=== PATIENT | male | born 1955 | race Caucasian/White ===

== ENCOUNTER 2021-01-06 07:12 | Outpatient (REF) | payer OTHER, SELFPAY ==
[2021-01-06 11:55] LABS: MANUAL DIFF FLAG NO
[2021-01-06 12:01] LABS: Basophils Percent Auto 0.4 % (0-2); Eosinophils Absolute Auto 0.1 X10*3/uL (0.0-0.4); Eosinophils Percent Auto 1.7 % (0-4); Hematocrit 47.3 % (42-52); Hemoglobin 15.6 g/dl (14.0-18.0); Imm Gran Abs Auto 0.04 X10*3/uL (0.00-0.03); Imm Gran Pct Auto 0.5 % (0.0-0.4); Lymphocytes Absolute Auto 1.9 X10*3/uL (1.2-4.9); Lymphocytes Percent Auto 23.4 % (20-40); Mean Corpuscular Hemoglobin 30.2 pg (27.0-33.0); Mean Corpuscular Volume 91.5 fL (80-98); Monocytes Absolute Auto 0.7 X10*3/uL (0.1-1.2); Neutrophils Absolute Auto 5.5 X10*3/uL (2.0-8.3); Platelet Count 202 X10*3/uL (160-400); Red Blood Count 5.17 X10*6/uL (4.60-5.80); Red Cell Distribution Width 13.3 % (11.0-16.0); White Blood Count 8.3 X10*3/uL (4.8-10.8)
[2021-01-06 12:17] LABS: Alanine Aminotransferase 16 U/L (0-40); Albumin Level 4.3 g/dL (3.5-5.0); Alkaline Phosphatase 118 U/L (39-117); Anion Gap 12 (12-20); Aspartate Amino Transferase 21 U/L (5-37); Bilirubin Total 0.7 mg/dL (0.0-1.0); Blood Urea Nitrogen 18 mg/dL (9-16); Calcium 9.2 mg/dL (8.4-10.2); Carbon Dioxide 26 mmol/L (22-29); Chloride 107 mmol/L (96-108); Cholesterol 167 mg/dL; Estimated Glomerular Filt Rate > 60; Glucose Fasting 91 mg/dL (60-99); HDL Cholesterol 33 mg/dL; LDL Cholesterol Calculated 111 mg/dl; Potassium 4.4 mmol/L (3.3-5.1); Sodium 141 mmol/L (135-145); Total Protein 7.2 g/dL (6.5-8.0); Triglycerides 115 mg/dL
== END 2021-01-06 07:13 | disposition home or self-care (01) ==
LOC: HO.HMGCLDS 07:12
PROVIDERS: PCP Internal Medicine; Visit Provider Internal Medicine
DX: Z00.00 Encounter for general adult medical examination without abnormal findings (principal); Z12.5 Encounter for screening for malignant neoplasm of prostate
CPT/HCPCS: 36415; 80053; 80061; 84153; 85025

== ENCOUNTER 2024-02-10 12:54 | Outpatient (REF) | payer MEDICARE, SELFPAY ==
[2024-02-10 16:19] LABS: MANUAL DIFF FLAG NO
[2024-02-10 16:24] LABS: Basophils Percent Auto 0.5 % (0-2); Eosinophils Absolute Auto 0.2 X10*3/uL (0.0-0.4); Eosinophils Percent Auto 1.8 % (0-4); Hematocrit 43.9 % (42.0-52.0); Hemoglobin 15.1 g/dl (14.0-18.0); Imm Gran Abs Auto 0.04 X10*3/uL (0.00-0.03); Imm Gran Pct Auto 0.5 % (0.0-0.4); Lymphocytes Absolute Auto 1.6 X10*3/uL (1.2-4.9); Lymphocytes Percent Auto 18.5 % (20-40); Mean Corpuscular HGB Conc 34.4 g/dl (31.0-36.0); Mean Corpuscular Hemoglobin 31.2 pg (27.0-33.0); Mean Corpuscular Volume 90.7 fL (80.0-98.0); Mean Platelet Volume 12.2 fL (9.4-12.4); Monocytes Absolute Auto 0.7 X10*3/uL (0.1-1.2); Monocytes Percent Auto 7.7 % (2-11); Platelet Count 193 X10*3/uL (160-400); Red Blood Count 4.84 X10*6/uL (4.60-5.80); Red Cell Distribution Width 13.7 % (11.0-16.0); White Blood Count 8.5 X10*3/uL (4.8-10.8)
[2024-02-10 16:32] LABS: Anion Gap 12 (12-20); Blood Urea Nitrogen 16 mg/dL (9-16); Calcium 9.6 mg/dL (8.4-10.2); Carbon Dioxide 26 mmol/L (22-29); Chloride 106 mmol/L (96-108); Cholesterol 184 mg/dL (<200); Estimated Glomerular Filt Rate > 60; Glucose Random 102 mg/dL (60-115); Potassium 4.1 mmol/L (3.3-5.1); Sodium 140 mmol/L (135-145)
[2024-02-10 17:02] LABS: Prostate Specific Antigen Scr 7.25 ng/mL (<0.05-4.0)
== END 2024-02-10 12:55 | disposition home or self-care (01) ==
LOC: HO.HMGCLDS 12:54
PROVIDERS: PCP Internal Medicine; Visit Provider Internal Medicine
DX: N40.0 Benign prostatic hyperplasia without lower urinary tract symptoms (principal); Z12.5 Encounter for screening for malignant neoplasm of prostate; K57.30 Diverticulosis of large intestine without perforation or abscess without bleeding
CPT/HCPCS: 36415; 80048; 82465; 84153; 85025

== ENCOUNTER 2024-02-21 12:45 | Outpatient (REF) | payer MEDICARE, SELFPAY ==
[2024-02-21 17:38] LABS: PSA,Total (Free>4and<10) 5.77 ng/mL (0.00-4.00)
[2024-02-23 11:27] LABS: Free Prostate Spec Ag 1.1 ng/mL; Percent Free Prostate Spec Ag 20 % (calc) (>25); Prostate Specific Ag Total 5.5 ng/mL (< OR = 4.0)
== END 2024-02-21 12:46 | disposition home or self-care (01) ==
LOC: HO.HMGCLDS 12:45
PROVIDERS: PCP Internal Medicine; Visit Provider Internal Medicine
DX: R97.20 Elevated prostate specific antigen [PSA] (principal); Z12.5 Encounter for screening for malignant neoplasm of prostate
CPT/HCPCS: 36415; 84153; 84154

== ENCOUNTER 2024-05-30 09:00 | Outpatient (AMB) | payer MEDICARE, OTHER, SELFPAY ==
--- NOTE | 2024-05-30 09:04 | A.OFFVIS_ITS ---
Intake Visit Reasons: Elevated PSA Intake Note: Patient is present for ELEVATED PSA Urology Medication:TAMSULOSIN Antibiotic Allergy:NONE Blood Thinner:NONE Prescription Clerk Lenses Required: No Allergies No Known Allergies Allergy (Verified 05/30/24 09:04) HPI Comments Details: Bebeto is a pleasant male. He is a patient of Dr. Tanner. He is seen for the following urologic conditions - elevated PSA ALCON slight nodularity right side No history of familial prostate cancer PCPT calculator 6% high-grade, ALCON abnormality 9% high-grade Will repeat PSA in 4 months PSA - 02/25 7.3, 03/27 5.5 20% Review of Systems Const Denies chills and Denies fever(s) Card Reports no additional complaints and Denies syncope Resp Denies cough GI Denies abdominal pain and Denies heartburn Reports as per HPI and Denies change in libido Neuro Denies syncope Psych Denies change in libido Endo Denies change in libido Physical Exam Const General: cooperative, healthy appearing, comfortable and no acute distress Orientation/consciousness: patient oriented x3 HEENT Face and sinus: Yes normal facial exam Mouth: moist mucous membranes Neck Neck: Yes normal visual inspection, Yes full ROM and Yes trachea midline Chest Chest palpation & inspection: normal inspection of the chest Resp Effort & Inspection: normal respiratory effort, able to speak in complete sentences and no respiratory distress GI Inspection: Yes normal to inspection Back/Spine/Pelvis Cervical Spine: normal cervical lordosis Thoracic/Lumbar Spine: thoracic and lumbar spine normal to inspection Skin General skin exam: no rashes or lesions noted Neuro General: patient oriented x3, gait normal, tone normal and moves all extremities Extrem General: Yes normal to inspection and Yes capillary refill normal Assessment & Plan Assessment & Plan (1) Prostate nodule: Code(s): N40.2 - Nodular prostate without lower urinary tract symptoms Category: Medical (2) Elevated PSA: Code(s): R97.20 - Elevated prostate specific antigen [PSA] Category: Medical Plan Four month follow-up PSA Patient Instructions: This note is constructed using voice recognition software. While every effort has been made to ensure accuracy cephalometric analyst errors may have been included. Imaging studies, laboratory and physical exam results were discussed and reviewed in detail. No major barriers to patient understanding were identified. An opportunity to ask questions regarding the treatment plan was provided. All questions were answered. The patient expressed understanding and agreement with the above treatment plan. The patient is aware they should contact our office by phone for worsening of their current condition or the appearance of new urologic symptoms. Compliance is encouraged with any medications and followup testing that is ordered. It is a privilege to participate in the urologic care of your patient. If you have any questions or concerns regarding treatment for the above conditions, or other urologic issues, please do not hesitate to contact me. The office telephone contact is [phone]. Sincerely, Dr Ishan Sharma MD, JUDD [facility] - Urology Compassionate Specialist Care for the Genitourinary System Coding Level of Care Code New Pt Level 4 (34509) Diagnoses Prostate nodule N40.2 Elevated PSA R97.20
== END 2024-05-30 09:21 | disposition home or self-care (01) ==
PROVIDERS: PCP Internal Medicine; Visit Provider Urology
DX: N40.2 Nodular prostate without lower urinary tract symptoms (principal); R97.20 Elevated prostate specific antigen [PSA]
CPT/HCPCS: 99204

== ENCOUNTER → 2024-05-30 09:00 | Outpatient (BNVA) | payer MEDICARE, OTHER, SELFPAY | PROVIDERS: PCP Internal Medicine; Visit Provider Urology | DX: R97.20 Elevated prostate specific antigen [PSA] (principal); N40.2 Nodular prostate without lower urinary tract symptoms | CPT/HCPCS: 99202 ==

== ENCOUNTER 2024-09-22 09:12 | Outpatient (REF) | payer MEDICARE, OTHER, SELFPAY ==
[2024-09-22 11:53] LABS: Prostate Specific Antigen 8.33 ng/mL (<0.05-4.0)
== END 2024-09-22 09:13 | disposition home or self-care (01) ==
LOC: HO.HMGCLDS 09:12
PROVIDERS: Visit Provider Urology
DX: R97.20 Elevated prostate specific antigen [PSA] (principal); N40.2 Nodular prostate without lower urinary tract symptoms
CPT/HCPCS: 36415; 84153

== ENCOUNTER 2024-09-28 08:22 | Outpatient (AMB) | payer MEDICARE, OTHER, SELFPAY ==
--- NOTE | 2024-09-28 08:25 | MHC.OFFVIS ---
Intake Visit Reasons: 4m/PSA Intake Note: Patient is present for ELEVATED PSA Urology Medication:TAMSULOSIN Antibiotic Allergy:NONE Blood Thinner:NONE Virtual Reality Specialist Required: No Accompanied by: Self / Same As Patient Allergies No Known Allergies Allergy (Verified 09/28/24 08:25) HPI Comments Details: Bebeto is a pleasant male. He is a patient of Dr. Tanner. He is seen for the following urologic conditions - elevated PSA PSA continuing to rise Recommend biopsy Antibiotics provided ALCON slight nodularity right side No history of familial prostate cancer PCPT calculator 6% high-grade, ALCON abnormality 9% high-grade PSA - 02/25 7.3, 03/27 5.5 20%, , 09/26 8.3 Review of Systems Const Denies chills and Denies fever(s) Card Reports no additional complaints and Denies syncope Resp Denies cough GI Denies abdominal pain and Denies heartburn Reports as per HPI and Denies change in libido Neuro Denies syncope Psych Denies change in libido Endo Denies change in libido Physical Exam Const General: cooperative, healthy appearing, comfortable and no acute distress Orientation/consciousness: patient oriented x3 HEENT Face and sinus: Yes normal facial exam Mouth: moist mucous membranes Neck Neck: Yes normal visual inspection, Yes full ROM and Yes trachea midline Chest Chest palpation & inspection: normal inspection of the chest Resp Effort & Inspection: normal respiratory effort, able to speak in complete sentences and no respiratory distress GI Inspection: Yes normal to inspection Back/Spine/Pelvis Cervical Spine: normal cervical lordosis Thoracic/Lumbar Spine: thoracic and lumbar spine normal to inspection Skin General skin exam: no rashes or lesions noted Neuro General: patient oriented x3, gait normal, tone normal and moves all extremities Extrem General: Yes normal to inspection and Yes capillary refill normal Assessment & Plan Assessment & Plan (1) Elevated PSA: Code(s): R97.20 - Elevated prostate specific antigen [PSA] Category: Medical Plan Risks and benefits regarding trans rectal ultrasound with prostate biopsy were discussed. Options of continued surveillance, no treatment and biopsy were offered. The risks include but are not limited to, urinary tract infection, sepsis, difficulty urinating, bleeding into the rectum or bladder that requires intervention and transfusion,and failure to diagnose prostate cancer. The patient understands the options and the risks involved. They wish to proceed. Printed information was provided to ensure he remains off anticoagulation for the appropriate length of time. He may require cardiology or PCP clearance. An antibiotic will be administered prior to, and following the procedure Medications: New levofloxacin take 1 tablet day before procedure, 1 tablet day of procedure and 1 tablet day after procedure 500 mg PO DAILY 3 tabs 0RF 3 days R97.20 - Elevated prostate specific antigen [PSA] Patient Instructions: This note is constructed using voice recognition software. While every effort has been made to ensure accuracy anesthesiologist and critical care errors may have been included. Imaging studies, laboratory and physical exam results were discussed and reviewed in detail. No major barriers to patient understanding were identified. An opportunity to ask questions regarding the treatment plan was provided. All questions were answered. The patient expressed understanding and agreement with the above treatment plan. The patient is aware they should contact our office by phone for worsening of their current condition or the appearance of new urologic symptoms. Compliance is encouraged with any medications and followup testing that is ordered. It is a privilege to participate in the urologic care of your patient. If you have any questions or concerns regarding treatment for the above conditions, or other urologic issues, please do not hesitate to contact me. The office telephone contact is [phone]. Sincerely, Dr Ishan Sharma MD, JUDD [facility] - Urology Compassionate Specialist Care for the Genitourinary System Coding Level of Care Code Est Pt Level 4 (58290) Diagnoses Elevated PSA R97.20
--- OUTSIDE RECORDS SUMMARY | 2024-09-28 08:30 | XMS_ITS | Patient Health Record ---
Author Organization [facility] Address [address] [place] [address] Care Team Providers Care Technical Administrative Assistant Name Role Phone Dhruv Tanner MD Primary Care Provider Kailee Jack Leone Unavailable [phone] Reason For Referral No Information Medications Medication SIG (Take, Route, Fr equency, Duration) Notes Start Date End Date Status Centrum Silver Activ e Tamsulosin HCl 0.4 MG 1 capsule Orally Once a day Active Social History Tobacco Use: Social History Observation Description Date Details (start date - stop date) Never Smoker NA - NA Tobacco Use/Smoking Question Answer Notes Patient is a nonsmoker Alcohol Screen Question Answer Notes Did you have a drink contain ing alcohol in the past year? Yes How often did you have a dri nk containing alcohol in the past year? Monthly or less (1 point) How many drinks did you have on a typical day when you were drinking in the past year? 1 or 2 drinks (0 point) How often did you have 6 or more drinks on one occasion in the past year? Never (0 point) Points 1 Interpretation Negative Section Notes: Nonsmoker; no sig alcohol Problems Problem Type SNOMED Code ICD Code Onset Dates Problem Status W/U Status Risk Notes Problem [id number] Encounter for screening for malignant neoplasm of colon (Z12.11) Active confirmed Problem [id number] Preprocedural examination (Z01.818) Active confirmed Plan Of Treatment Future Test Test Name Order Date COLONOSCOPY 09/09/2016 Insurance Providers Payer Name Payer Address Payer Phone Subscriber Number Group Number Insured Name Patient Relationship to Insured Coverage Start Date Coverage End Date [employer] [address] [place] [address] [id number] [employer]AN[facility] ED Self - patient is the insured Medical (General) History Medical History History ICD Code Denies [place],DM,CVA,Lung disease,renal dise ase BPH Reports a neg. colonoscopy at approx. ag e 50 in [place] Surgical History Surgery Date(Month/Year) Tonsillectomy 1961
== END 2024-09-28 08:49 | disposition home or self-care (01) ==
LOC: HO.HUSH 08:23
PROVIDERS: PCP Internal Medicine; Visit Provider Urology
DX: Z13.9 Encounter for screening, unspecified (principal); R97.20 Elevated prostate specific antigen [PSA]
CPT/HCPCS: 99214

== ENCOUNTER → 2024-09-28 08:22 | Outpatient (BNVA) | payer MEDICARE, OTHER, SELFPAY | PROVIDERS: PCP Internal Medicine; Visit Provider Urology | DX: R97.20 Elevated prostate specific antigen [PSA] (principal) | CPT/HCPCS: 81003; 99212 ==

== ENCOUNTER 2024-11-13 07:16 | Outpatient (REF) | payer MEDICARE, OTHER, SELFPAY ==
[2024-11-13] MEDS: Lidocaine HCl 1 % MPF 5 ML VIAL 10 ML SUBCUT (08:48)
== END 2024-11-13 07:17 | disposition home or self-care (01) ==
LOC: HO.US 07:16
PROVIDERS: Visit Provider Urology
DX: R97.20 Elevated prostate specific antigen [PSA] (principal)
CPT/HCPCS: 55700; 76942; 88305; 88342; 88344; J2003

== ENCOUNTER 2024-12-05 08:59 | Outpatient (AMB) | payer MEDICARE, OTHER, SELFPAY ==
--- NOTE | 2024-12-05 08:59 | A.OFFVIS_ITS ---
Intake Visit Reasons: Prostate biopsy results Intake Note: Patient is present for Telehealth Biopsy results Urology Medication:TAMSULOSIN Antibiotic Allergy:NONE Blood Thinner:NONE It Infrastructure Consultant Required: No Accompanied by: Self / Same As Patient Allergies No Known Allergies Allergy (Verified 12/05/24 09:00) HPI Comments Details: Bebeto is a pleasant male. He is a patient of Dr. Tanner. He is seen for the following urologic conditions - elevated PSA Telemedicine Evaluation 15 min Consultation [employer] [facility] Video Follow-up Discussed biopsy results showing grade group 3, multi core, average volume prostate cancer Complete staging Review in 4 weeks in office Prostate cancer PSA - 02/25 7.3, 03/27 5.5 20%, 09/26 8.3 pT2a TRUS volume 45 gm Histologic type: Prostatic adenocarcinoma, acinar type Histologic grade: Bhargavi score: 7 (4+3) (right mid lateral - 35%), 7 (3+4) (right base lateral - 65%, right mid medial - 45%,and right apex lateral 80% and medial 60%), 6 (3+3) (left base lateral - 5%) Number cores positive: 6 Total number of cores: 12 % of tissue involved: 19% Periprostatic fat inv.: Not identified Seminal vesicle inv.: Not identified Perineural inv.: Present Lymphatic and/or vascular invasion: Definitive LVI is not identified, but it also is not excluded. Review of Systems Const All systems reviewed & are unremarkable except as noted in HPI and below Reports no additional complaints Resp Reports no additional complaints GI Reports no additional complaints Reports as per HPI Musc Reports no additional complaints Physical Exam Telemedicine evaluation Appropriate responses Regular breathing rate and rhythm HEENT Head: Yes normal to inspection Ears: hearing grossly normal bilaterally Eyes General: appearance normal, both eyes and all related structures Neck Neck: Yes normal visual inspection Chest Chest palpation & inspection: normal inspection of the chest Resp Effort & Inspection: normal respiratory effort and able to speak in complete sentences Telehealth Telehealth Telehealth Platform: [employer] Location of provider rendering services: practice address Location of patient: address on file Patient Identification confirmed using: Name, : Yes Telehealth method: video Patient verbally consented to treatment: Yes Patient verbally consented to billing insurance company: Yes Patient informed of any privacy concerns related to visit: Yes Minutes spent on Phone/Video with Pt.: 15 Assessment & Plan Assessment & Plan (1) Hormone sensitive prostate cancer: Code(s): C61 - Malignant neoplasm of prostate; Z19.1 - Hormone sensitive malignancy status Category: Medical Plan Complete staging Complete genetics Four week follow-up Orders: Orders PET CT fusion skull to thigh Today C61 - Malignant neoplasm of prostate, Z19.1 - Hormone sensitive malignancy status MR Prostate wo/w con 2 Weeks C61 - Malignant neoplasm of prostate, Z19.1 - Hormone sensitive malignancy status Medications: New finasteride 5 mg PO DAILY 90 tabs 1RF 90 days C61 - Malignant neoplasm of prostate, Z19.1 - Hormone sensitive malignancy status Patient Instructions: This note is constructed using voice recognition software. While every effort has been made to ensure accuracy digital production artist errors may have been included. Imaging studies, laboratory and physical exam results were discussed and reviewed in detail. No major barriers to patient understanding were identified. An opportunity to ask questions regarding the treatment plan was provided. All questions were answered. The patient expressed understanding and agreement with the above treatment plan. The patient is aware they should contact our office by phone for worsening of their current condition or the appearance of new urologic symptoms. Compliance is encouraged with any medications and followup testing that is ordered. It is a privilege to participate in the urologic care of your patient. If you have any questions or concerns regarding treatment for the above conditions, or other urologic issues, please do not hesitate to contact me. The office telephone contact is [phone]. Sincerely, Dr Ishan Sharma MD, JUDD [facility] - Urology Compassionate Specialist Care for the Genitourinary System Coding Level of Care Code Tele Est Pt Level 4 (80876) Complex EM visit Add On G2211 Diagnoses Hormone sensitive prostate cancer C61; Z19.1
--- OUTSIDE RECORDS SUMMARY | 2024-12-05 09:36 | XMS_ITS | Patient Health Record ---
Author Organization [facility] Address [address] [place] [address] Care Team Providers Care Senior Communications Engineer Name Role Phone Flores (RETIRED) Dhruv MICHELE Primary Care Provide r Unavailable Jack López Unavailable [phone] Reason For Referral No Information Medications Medication [...] Problem Status W/U Status Risk Notes Problem [id number] Encounter for screening for malignant neoplasm of colon (Z12.11) Active confirmed Problem [id number] Preprocedural examination (Z01.818) Active confirmed Plan Of Treatment Future Test Test Name Order Date COLONOSCOPY 09/09/2016 Insurance Providers Payer Name Payer Address Payer Phone Subscriber Number Group Number Insured Name Patient Relationship to Insured Coverage Start Date Coverage End Date C[employer] [address] [place] [address] [phone] [id number] MIGUEL ED Self - patient is the insured Medical (General) History Medical History History ICD Code Denies CT,DM,CVA,Lung disease,renal dise ase BPH Reports a neg. colonoscopy at approx. ag e 50 in [place] Surgical History Surgery Date(Month/Year) Tonsillectomy 1961
== END 2024-12-05 10:21 | disposition home or self-care (01) ==
LOC: HO.HUSH 08:59
PROVIDERS: PCP Internal Medicine; Visit Provider Urology
DX: C61 Malignant neoplasm of prostate (principal); Z19.1 Hormone sensitive malignancy status
CPT/HCPCS: 99214; G2211

== ENCOUNTER → 2024-12-12 09:45 | Outpatient (BNV) | payer MEDICARE, OTHER, SELFPAY | PROVIDERS: Visit Provider Radiology Diagnostic Radiology | DX: C61 Malignant neoplasm of prostate (principal) | CPT/HCPCS: 72197; 76377 ==

== ENCOUNTER 2024-12-12 09:54 | Outpatient (REF) | payer MEDICARE, OTHER, SELFPAY ==
--- NOTE | ~2024-12-12 | MR_ITS ---
EXAMINATION: MR PROSTATE WITHOUT THEN WITH IV CONTRAST, MR EXAM UNLISTED HISTORY: C61 - Malignant neoplasm of prostate TECHNIQUE: 1.5T body coil survey of the pelvis was performed. Phase array coil imaging of the prostate was performed in multiplanar high resolution axial, coronal, sagittal fast spin echo T2 and axial T1 weighted imaging sequences. Axial diffusion imaging at intermediate and high field performed with ADC mapping. Next, 9 mL Gadavist was given by intravenous infusion, and dynamic axial imaging performed. 3-D reconstructions and post-processing were performed on an independent workstation by the radiologist for biopsy planning using image fusion. COMPARISON: There are no prior studies available for comparison. CLINICAL DATA: Most recent PSA: 8.33 ng/mL on 09/22/2024. PSA Density: 0.27 ng/mL squared Prostate Biopsy: Positive biopsy on 11/13/2024 with a [place] score of 3+4 = 7. FINDINGS: Prostate size: 4.0 x 4.3 x 3.4 cm. Calculated prostate volume is 30.4 mL. Hemorrhage: None. Transitional Zone: There is moderate heterogeneous nodular hypertrophy of the transitional zone. There is a circumscribed, nonencapsulated area of interest in the transitional zone as described below: Area of interest #1: Location: Right transitional zone at the base measuring 1.6 cm (series 7 images 13-17). DWI PI-RADS v2.1 score: 5 T2 PI-RADS v2.1 score: 5 DCE PI-RADS v2.1 score: + Overall PI-RADS v2.1 score: 5 Capsular contact: yes Extracapsular extension: None Seminal vesicle invasion: None Neurovascular bundle involvement: None Peripheral Zone: There is an area of interest in the peripheral zone as described below: Area of interest #2: Location: Right lateral and posterior peripheral zone in the mid gland/apex measuring 1.6 cm in size (series 7, images 21-26). DWI PI-RADS v2.1 score: 5 T2 PI-RADS v2.1 score: 5 DCE PI-RADS v2.1 score: + Overall PI-RADS v2.1 score: 5 Capsular contact: yes Extracapsular extension: No definite Seminal vesicle invasion: None Neurovascular bundle involvement: No definite Seminal Vesicles/Ejaculatory Ducts: Symmetric and normal in signal and caliber. Pelvic Lymph Nodes: No obturator or internal iliac lymph nodes meeting size criteria for adenopathy. Marrow Signal: Normal marrow signal and enhancement without focal lesion identified. MR/MR Prostate wo/w con IMPRESSION: Areas of interest in the right transitional zone and right peripheral zone as described above, highly suspicious for clinically significant prostate carcinoma. PI-RADS 5: Very high (clinically significant cancer is highly likely to be present) PI-RADS Assessment Categories PI-RADS 1: Very low (clinically significant cancer is highly unlikely to be present) PI-RADS 2: Low (clinically significant cancer is unlikely to be present) PI-RADS 3: Intermediate (the presence of clinically significant cancer is equivocal) PI-RADS 4: High (clinically significant cancer is likely to be present) PI-RADS 5: Very high (clinically significant cancer is highly likely to be present) [employer]. MR Prostate Imaging Reporting and Data System version 2.1. [email or web address] Electronically signed by: Jack Mesa MD 12/12/2024 11:28 AM EDT
--- NOTE | ~2024-12-12 | MR_ITS ---
EXAMINATION: MR PROSTATE WITHOUT THEN WITH IV CONTRAST, MR EXAM UNLISTED HISTORY: C61 - Malignant neoplasm of prostate TECHNIQUE: 1.5T body coil survey of the pelvis was performed. Phase array coil imaging of the prostate was performed in multiplanar high resolution axial, coronal, sagittal fast spin echo T2 and axial T1 weighted imaging sequences. Axial diffusion imaging at intermediate and high field performed with ADC mapping. Next, 9 mL Gadavist was given by intravenous infusion, and dynamic axial imaging performed. 3-D reconstructions and post-processing were performed on an independent workstation by the radiologist for biopsy planning using image fusion. COMPARISON: There are no prior studies available for comparison. CLINICAL DATA: Most recent PSA: 8.33 ng/mL on 09/22/2024. PSA Density: 0.27 ng/mL squared Prostate Biopsy: Positive biopsy on 11/13/2024 with a [place] score of 3+4 = 7. FINDINGS: Prostate size: 4.0 x 4.3 x 3.4 cm. Calculated prostate volume is 30.4 mL. Hemorrhage: None. Transitional Zone: There is moderate heterogeneous nodular hypertrophy of the transitional zone. There is a circumscribed, nonencapsulated area of interest in the transitional zone as described below: Area of interest #1: Location: Right transitional zone at the base measuring 1.6 cm (series 7 images 13-17). DWI PI-RADS v2.1 score: 5 T2 PI-RADS v2.1 score: 5 DCE PI-RADS v2.1 score: + Overall PI-RADS v2.1 score: 5 Capsular contact: yes Extracapsular extension: None Seminal vesicle invasion: None Neurovascular bundle involvement: None Peripheral Zone: There is an area of interest in the peripheral zone as described below: Area of interest #2: Location: Right lateral and posterior peripheral zone in the mid gland/apex measuring 1.6 cm in size (series 7, images 21-26). DWI PI-RADS v2.1 score: 5 T2 PI-RADS v2.1 score: 5 DCE PI-RADS v2.1 score: + Overall PI-RADS v2.1 score: 5 Capsular contact: yes Extracapsular extension: No definite Seminal vesicle invasion: None Neurovascular bundle involvement: No definite Seminal Vesicles/Ejaculatory Ducts: Symmetric and normal in signal and caliber. Pelvic Lymph Nodes: No obturator or internal iliac lymph nodes meeting size criteria for adenopathy. Marrow Signal: Normal marrow signal and enhancement without focal lesion identified. MR/MR CAD IMPRESSION: Areas of interest in the right transitional zone and right peripheral zone as described above, highly suspicious for clinically significant prostate carcinoma. PI-RADS 5: Very high (clinically significant cancer is highly likely to be present) PI-RADS Assessment Categories PI-RADS 1: Very low (clinically significant cancer is highly unlikely to be present) PI-RADS 2: Low (clinically significant cancer is unlikely to be present) PI-RADS 3: Intermediate (the presence of clinically significant cancer is equivocal) PI-RADS 4: High (clinically significant cancer is likely to be present) PI-RADS 5: Very high (clinically significant cancer is highly likely to be present) [employer]. MR Prostate Imaging Reporting and Data System version 2.1. [email or web address] Electronically signed by: Jack Mesa MD 12/12/2024 11:28 AM EDT
--- OUTSIDE RECORDS SUMMARY | 2024-12-12 12:08 | XMS_ITS | Patient Health Record ---
Author Organization [facility] Address [address] [place] [address] Care Team Providers Care Equipment Application Specialist Name Role Phone Flores (RETIRED) Dhruv MICHELE Primary Care Provide r Unavailable Jack López Unavailable [phone] Reason For Referral No Information Medications Medication [...] Problem Status W/U Status Risk Notes Problem [id number] Encounter for screening for malignant neoplasm of colon (Z12.11) Active confirmed Problem [id number] Preprocedural examination (Z01.818) Active confirmed Plan Of Treatment Future Test Test Name Order Date COLONOSCOPY 09/09/2016 Insurance Providers Payer Name Payer Address Payer Phone Subscriber Number Group Number Insured Name Patient Relationship to Insured Coverage Start Date Coverage End Date [employer] [address] [place] [address] [phone] [id number] MIGUEL ED Self - patient is the insured Medical (General) History Medical History History ICD Code Denies [place],DM,CVA,Lung disease,renal dise ase BPH Reports a neg. colonoscopy at approx. ag e 50 in [place] Surgical History Surgery Date(Month/Year) Tonsillectomy 1961
== END 2024-12-12 09:55 | disposition home or self-care (01) ==
LOC: HO.MRI 09:54
PROVIDERS: Visit Provider Urology
DX: C61 Malignant neoplasm of prostate (principal); Z19.1 Hormone sensitive malignancy status
CPT/HCPCS: 72197; 76377; A9585

== ENCOUNTER 2024-12-25 09:25 | Outpatient (AMB) | payer MEDICARE, OTHER, SELFPAY ==
--- OUTSIDE RECORDS SUMMARY | 2024-12-18 11:10 | XMS_ITS | Encounter Summary ---
Author Organization [employer] Address [address] [place] [address] Care Team Providers Care Keno Manager Name Role Phone Unavailable Primary Care Provider Unavailabl e Reason for Referral * Imaging (Routine) - Closed Specialty Diagnoses / Procedures Referred By Helena clifford Referred To Contact Radiology Diagnoses Malignant neoplasm of prostate (CMS/HCC V24, CMS/HCC V28) Hormone sensitive malignancy status Procedures PET CT Skull to Mid Thigh Initial Ishan Sharma MD [address] [place] [address] [place] [address] Phone: tel: fax: [facility] Referral ID Status Reason Start Date Expiration Date Visits Re quested Visits Authorized [id number] Closed 12/17/2024 12/17/2025 1 1 Reason for Visit * Imaging (Routine) - Closed Specialty Diagnoses / Procedures Referred By Helena clifford Referred To Contact Radiology Diagnoses Malignant neoplasm of prostate (CMS/HCC V24, CMS/HCC V28) Hormone sensitive malignancy status Procedures PET CT Skull to Mid Thigh Initial Ishan Sharma MD [address] [place] [address] [place] [address] Phone: tel: fax: [facility] Referral ID Status Reason Start Date Expiration Date Visits Re quested Visits Authorized [id number] Closed 12/17/2024 12/17/2025 1 1 Encounter Details Date Type Department Care Team (Latest Contact Info) Description 12/18/2024 11:10 AM EDT Hospital Encounter [facility] PET Scan [address] [place] [address] Malignant neoplasm of prostate (CMS/HCC V24, CMS/HCC V28); Hormone sensitive malignancy status Social History Tobacco Use Types Packs/Day Years Used Date Smoking Tobacco: Never Assessed Sex and Gender Information Value Date Recorded Sex Assigned at Not on file Legal Sex Male 10:32 AM EDT Gender Identity Not on file Sexual Orientation Not on file documented as of this encounter Plan of Treatment Not on file documented as of this encounter Procedures Procedure Name Priority Date/Time Associated Diagnosis Comments PET CT SKULL TO MID THIGH INITIAL Routine 12/18/2024 12:50 PM EDT Malignant neoplasm of prostate (CMS/HCC V24, CMS/HCC V28) Hormone sensitive malignancy status documented in this encounter Results * PET CT Skull to Mid Thigh Initial (12/18/2024 12:50 PM EDT) Anatomical Region Laterality Modality Body Radiographic Addie ging 12/19/2024 2:26 PM EDT Impressions 12/19/2024 2:29 PM EDT Prostatic activity consistent with history of prostate carcinoma. No PET/CT evidence of metastatic disease. -------- FINAL REPORT -------- Dictated By: Jazmín Bliss Dictated Date: 12/19/2024 14:26 ET Assigned Physician: Jazmín Bliss Reviewed and Electronically Signed By: Jazmín Bliss Signed Date: 12/19/2024 14:29 ET Workstation ID: [id number] Transcribed By: Self Edit Transcribed Date: 12/19/2024 14:28 ET Narrative 12/19/2024 2:29 PM EDT HISTORY: Prostate carcinoma, initial treatment strategy PRIOR IMAGING STUDIES: None RADIOPHARMACEUTICAL: 9.8 mCi F-18 piflufolastat IV INJECTION SITE: Left antecubital INJECTION TIME TO SCAN TIME: [address] Dose: 597 DLP (mGy-cm) PROCEDURE: Routine body PET-CT imaging performed from the top of the skull to the mid thighs and reconstructed in axial, coronal, sagittal planes at the computer workstation with fused data from both the PET imaging study and attenuation correction CT study. Please note, CT imaging utilized strictly for attenuation correction and anatomic localization: CT not designed to produce and cannot replace cclmc-ay-jsi-art true diagnostic CT examination with specific protocols. Standardized uptake values (SUV) normalized to patient body weight and indicate the highest active concentration (SUV max) in a given disease site. IMAGING FINDINGS: Expected pattern of physiological activity noted. HEAD AND NECK: No abnormal activity. THORAX: No abnormal activity. ABDOMEN/PELVIS: No abnormal activity. Prostate: Focal activity noted along the right side of the prostate gland towards the base with SUV max of 6.5. Small focus of activity along the midline towards the apex of the gland with SUV max of 4.2. MUSCULOSKELETAL: No abnormal activity. Procedure Note Jazmín Bliss MD - 12/19/2024 HISTORY: Prostate carcinoma, initial treatment strategy PRIOR IMAGING STUDIES: None RADIOPHARMACEUTICAL: 9.8 mCi F-18 piflufolastat IV INJECTION SITE: Left antecubital INJECTION TIME TO SCAN TIME: [address] Dose: 597 DLP (mGy-cm) PROCEDURE: Routine body PET-CT imaging performed from the top of the skull to the midthighs and reconstructed in axial, coronal, sagittal planes at the[employer] workstation with fused data from both the PET imaging study andattenuation correction CT study. Please note, CT imaging utilized strictlyfor attenuation correction and anatomic localization: CT not designed toproduce and cannot replace lenxw-wt-hss-art true diagnostic CT examinationwith specific protocols. Standardized uptake values (SUV) normalized topatient body weight and indicate the highest active concentration (SUVmax) in a given disease site. IMAGING FINDINGS: Expected pattern of physiological activity noted. HEAD AND NECK: No abnormal activity. THORAX: No abnormal activity. ABDOMEN/PELVIS: No abnormal activity. Prostate: Focal activity noted along the right side of the prostate glandtowards the base with SUV max of 6.5. Small focus of activity along the midline towards the apex of the glandwith SUV max of 4.2. MUSCULOSKELETAL: No abnormal activity. IMPRESSION: Prostatic activity consistent with history of prostate carcinoma. NoPET/CT evidence of metastatic disease. -------- FINAL REPORT -------- Dictated By: Jazmín Bliss Dictated Date: 12/19/2024 14:26 ET Assigned Physician: Jazmín Bliss Reviewed and Electronically Signed By: Jazmín Bliss Signed Date: 12/19/2024 14:29 ET Workstation ID: [id number] Transcribed By: Self Edit Transcribed Date: 12/19/2024 14:28 ET us Ishan BRYAN NM PROCEDURES Final Resul t documented in this encounter Visit Diagnoses Diagnosis Malignant neoplasm of prostate (CMS/HCC V24, CMS/HCC V28) Malignant neoplasm of prostate Hormone sensitive malignancy status documented in this encounter Administered Medications Inactive Administered Medications - up to 3 most recent administrations Medication Order MAR Action Action Date Dose Rate Site piflufolastat F 18 radio-isotope injection 9.8 millicurie 9.8 millicurie, intravenous, Once in imaging, Starting on Tue12/18/24 at 1135, For 1 dose Given 12/18/2024 11:35 AM EDT 9.8 millicuries Left Antecubital documented in this encounter Orders Medications Ordered That Max ht Not Have Been Administered Count Last Ordered Date First Ordered Date piflufolastat F 18 radio-iso hussein injection 9.8 millicurie 1 12/18/2024 documented in this encounter
--- NOTE | 2024-12-25 09:33 | MHC.OFFVIS ---
Intake Visit Reasons: 4w follow up Intake Note: patient presents today for: 4wk follow up urology medications: finasteride, tamsulosin blood thinners: none MRI done: 12/12/24 PET-CT done: 12/18/24 Special Education Preschool Teacher Required: No Accompanied by: Daughter Allergies No Known Allergies Allergy (Verified 12/25/24 09:36) HPI Comments Details: Bebeto is a pleasant male. He is a patient of Dr. Tanner. He is seen for the following urologic conditions - prostate cancer Staging follow-up Printed information provided Organ confined intermediate volume grade group 3 disease Referral radiation oncology Organize GnRH Plan for SpaceOAR with seed placement in 8 weeks Staging- Prolaris - multimodal therapy recommended, cell cycle score 4.1, right end of unfavorable intermediate grade group 3 curve - PET-CT prostate positive otherwise negative - prostate MRI - organ confined disease Prostate cancer PSA - 02/25 7.3, 03/27 5.5 20%, 09/26 8.3 pT2a TRUS volume 45 gm 11/26 Histologic type: Prostatic adenocarcinoma, acinar type Histologic grade: Gordon score: 7 (4+3) (right mid lateral - 35%), 7 (3+4) (right base lateral - 65%, right mid medial - 45%,and right apex lateral 80% and medial 60%), 6 (3+3) (left base lateral - 5%) Number cores positive: 6 Total number of cores: 12 % of tissue involved: 19% Periprostatic fat inv.: Not identified Seminal vesicle inv.: Not identified Perineural inv.: Present Lymphatic and/or vascular invasion: Definitive LVI is not identified, but it also is not excluded. Review of Systems Const Denies chills and Denies fever(s) Card Reports no additional complaints and Denies syncope Resp Denies cough GI Denies abdominal pain and Denies heartburn Reports as per HPI and Denies change in libido Neuro Denies syncope Psych Denies change in libido Endo Denies change in libido Physical Exam Const General: cooperative, healthy appearing, comfortable and no acute distress Orientation/consciousness: patient oriented x3 HEENT Face and sinus: Yes normal facial exam Mouth: moist mucous membranes Neck Neck: Yes normal visual inspection, Yes full ROM and Yes trachea midline Chest Chest palpation & inspection: normal inspection of the chest Resp Effort & Inspection: normal respiratory effort, able to speak in complete sentences and no respiratory distress GI Inspection: Yes normal to inspection Back/Spine/Pelvis Cervical Spine: normal cervical lordosis Thoracic/Lumbar Spine: thoracic and lumbar spine normal to inspection Skin General skin exam: no rashes or lesions noted Neuro General: patient oriented x3, gait normal, tone normal and moves all extremities Extrem General: Yes normal to inspection and Yes capillary refill normal Assessment & Plan Assessment & Plan (1) Hormone sensitive prostate cancer: Code(s): C61 - Malignant neoplasm of prostate; Z19.1 - Hormone sensitive malignancy status Category: Medical Plan Referral radiation oncology [facility] 2 weeks Orders: Referrals Radiation Oncology Referral C61 - Malignant neoplasm of prostate, Z19.1 - Hormone sensitive malignancy status Patient Instructions: This note is constructed using voice recognition software. While every effort has been made to ensure accuracy sheet metal operator errors may have been included. Imaging studies, laboratory and physical exam results were discussed and reviewed in detail. No major barriers to patient understanding were identified. An opportunity to ask questions regarding the treatment plan was provided. All questions were answered. The patient expressed understanding and agreement with the above treatment plan. The patient is aware they should contact our office by phone for worsening of their current condition or the appearance of new urologic symptoms. Compliance is encouraged with any medications and followup testing that is ordered. It is a privilege to participate in the urologic care of your patient. If you have any questions or concerns regarding treatment for the above conditions, or other urologic issues, please do not hesitate to contact me. The office telephone contact is [phone]. Sincerely, Dr Ishan Sharma MD, [facility] - Urology Compassionate Specialist Care for the Genitourinary System Coding Level of Care Code Est Pt Level 4 (63619) Complex EM visit Add On G2211 Diagnoses Hormone sensitive prostate cancer C61; Z19.1
--- OUTSIDE RECORDS SUMMARY | 2024-12-25 11:11 | XMS_ITS | Patient Health Record ---
Author Organization [facility] Address [address] [place] [address] Care Team Providers Care Parts Puller Name Role Phone Flores (RETIRED) Dhruv MICHELE Primary Care Provide r Unavailable Jack López Unavailable [phone] Reason For Referral No Information Medications Medication [...] Problem Status W/U Status Risk Notes Problem [id number] Encounter for screening for malignant neoplasm of colon (Z12.11) Active confirmed Problem [id number] Preprocedural examination (Z01.818) Active confirmed Plan Of Treatment Future Test Test Name Order Date COLONOSCOPY 09/09/2016 Insurance Providers Payer Name Payer Address Payer Phone Subscriber Number Group Number Insured Name Patient Relationship to Insured Coverage Start Date Coverage End Date [employer] [address] [place] [address] [phone] [id number] MIGUEL ED Self - patient is the insured Medical (General) History Medical History History ICD Code Denies MS,DM,CVA,Lung disease,renal dise ase BPH Reports a neg. colonoscopy at approx. ag e 50 in [place] Surgical History Surgery Date(Month/Year) Tonsillectomy 1961
--- OUTSIDE RECORDS SUMMARY | 2024-12-25 11:11 | XMS_ITS | Clinical Summary ---
Author Organization [facility] Address [address] [place] [address] Phone Care Team Providers Care Sharepoint Solutions Architect Name Role Phone Unavailable Primary Care Provider Unavailabl e Encounters Date Type Department Care Team Description 12/18/2024 11:10 AM EDT Hospital Encounter [facility] PET Scan [address] [place] [address] Malignant neoplasm of prostate (CMS/HCC V24, CMS/HCC V28); Hormone sensitive malignancy status from Last 3 Months Social History Tobacco Use Types Packs/Day Years Used Date Smoking Tobacco: Never Assessed Sex and Gender Information Value Date Recorded Sex Assigned at Not on file Legal Sex Male 10:32 AM EDT Gender Identity Not on file Sexual Orientation Not on file Plan of Treatment Health Maintenance Due Date Last Done Comments DTaP,Tdap,and Td Vaccines (1 - Tdap) 08/21/1974 Pneumococcal Vaccine: 50+ Years (1 of 1 - PCV) 08/21/2005 Zoster Vaccines (1 of 2) 08/21/2005 Depression Screening 04/04/2024 COVID-19 Vaccine (4 - 2024-2 6 season) 2024 03/05/2021, 07/03/2020, 05/22/2020 Influenza Vaccine (#1) 2024 03/04/2016 Abdominal Aortic Aneurysm (AAA) Screen 12/17/2024 Cholesterol Screening (Lipid Panel) 12/17/2024 Colorectal Cancer Screening: Colonoscopy 12/17/2024 Falls Risk Assessment 12/17/2024 Hepatitis C Screening 12/17/2024 Medicare Annual Wellness Visit 12/17/2024 Social Influencers of Health Screening 12/17/2024 RSV Immunization Adult Patients (1 - 1-dose 75+ series) 08/21/2030 HIB Vaccines Aged Out No longer eligi ble based on patient's age to complete this topic HPV Vaccines Aged Out No longer eligi ble based on patient's age to complete this topic Hepatitis A Vaccines Aged Out No long er eligible based on patient's age to complete this topic Hepatitis B Vaccines Aged Out No long er eligible based on patient's age to complete this topic IPV Vaccines Aged Out No longer eligi ble based on patient's age to complete this topic MMR Vaccines Aged Out No longer eligi ble based on patient's age to complete this topic Meningococcal ACWY Vaccine Aged Out N o longer eligible based on patient's age to complete this topic Meningococcal B Vaccine Aged Out No l onger eligible based on patient's age to complete this topic RSV Immunization Patients Under 20 months Aged Out No longer eligible b ased on patient's age to complete this topic Varicella Vaccines Aged Out No longer eligible based on patient's age to complete this topic Procedures Procedure Name Priority Date/Time Associated Diagnosis Comments PET CT SKULL TO MID THIGH INITIAL Routine 12/18/2024 12:50 PM EDT Malignant neoplasm of prostate (CMS/HCC V24, CMS/HCC V28) Hormone sensitive malignancy status from Last 3 Months Results * PET CT Skull to Mid [...] Signed Date: 12/19/2024 14:29 ET Workstation ID: [id number] Transcribed By: Self Edit Transcribed Date: 12/19/2024 [...] not designed to produce and cannot replace sgunf-wn-nzh-art true diagnostic CT examination with specific protocols. [...] reconstructed in axial, coronal, sagittal planes at theFlinjaputer workstation with fused data from both the PET imaging study andattenuation correction CT study. Please note, CT imaging utilized strictlyfor attenuation correction and anatomic localization: CT not designed toproduce and cannot replace dddfi-uh-tbu-art true diagnostic CT examinationwith specific protocols. Standardized [...] Signed Date: 12/19/2024 14:29 ET Workstation ID: [id number] Transcribed By: Self Edit Transcribed Date: 12/19/2024 14:28 ET Ishan Sharma MD IMG NM PROCEDURES Final Resul t from Last 3 Months Insurance MEDICARE
== END 2024-12-25 10:24 | disposition home or self-care (01) ==
LOC: HO.HUSH 09:26
PROVIDERS: Visit Provider Urology
DX: C61 Malignant neoplasm of prostate (principal); Z19.1 Hormone sensitive malignancy status
CPT/HCPCS: 99214; G2211

== ENCOUNTER → 2024-12-25 09:25 | Outpatient (BNVA) | payer MEDICARE, OTHER, SELFPAY | PROVIDERS: Visit Provider Urology | DX: C61 Malignant neoplasm of prostate (principal); Z19.1 Hormone sensitive malignancy status | CPT/HCPCS: 99212 ==

== ENCOUNTER 2025-01-08 08:15 | Outpatient (AMB) | payer MEDICARE, OTHER, SELFPAY ==
--- OUTSIDE RECORDS SUMMARY | 2025-01-08 08:31 | XMS_ITS | Patient Health Record ---
Author Organization [facility] Address [address] [place] [address] Care Team Providers Care Independent Trader Name Role Phone Flores (RETIRED) Dhruv MICHELE Primary Care Provide r Unavailable Jack López Unavailable [phone] Reason For Referral No Information Medications Medication [...] Problem Status W/U Status Risk Notes Problem [id number] Encounter for screening for malignant neoplasm of colon (Z12.11) Active confirmed Problem [id number] Preprocedural examination (Z01.818) Active confirmed Plan Of Treatment Future Test Test Name Order Date COLONOSCOPY 09/09/2016 Insurance Providers Payer Name Payer Address Payer Phone Subscriber Number Group Number Insured Name Patient Relationship to Insured Coverage Start Date Coverage End Date C[employer] [address] [place] [address] [phone] [id number] MIGUEL ED Self - patient is the insured Medical (General) History Medical History History ICD Code Denies NE,DM,CVA,Lung disease,renal dise ase BPH Reports a neg. colonoscopy at approx. ag e 50 in [place] Surgical History Surgery Date(Month/Year) Tonsillectomy 1961
--- OUTSIDE RECORDS SUMMARY | 2025-01-08 08:31 | XMS_ITS | Clinical Summary ---
Author Organization [facility] Address [address] [place] [address] Phone Care Team Providers Care Tile And Marble Installer Name Role Phone Unavailable Primary Care Provider Unavailabl e Encounters Date Type Department Care Team Description 12/18/2024 11:10 AM EDT - 12/18/2024 11:59 PM EDT Hospital Encounter [facility] PET Scan [address] [place] [address] Malignant neoplasm of prostate (CMS/HCC V24, CMS/HCC V28); Hormone sensitive malignancy status Discharge Disposition: Home or Self Care from Last 3 Months Social History Tobacco Use Types Packs/Day Years Used Date Smoking Tobacco: Never Assessed Sex and Gender Information Value Date Recorded Sex Assigned at Not on file Legal Sex Male 10:32 AM EDT Gender Identity Not on file Sexual Orientation Not on file Plan of Treatment Health Maintenance Due Date Last Done Comments Colorectal Cancer Screening: Colonoscopy 1955 DTaP,Tdap,and Td Vaccines (1 - Tdap) 08/21/1974 Pneumococcal Vaccine: 50+ Years (1 of 1 - PCV) 08/21/2005 Zoster Vaccines (1 of 2) 08/21/2005 Depression Screening 04/04/2024 COVID-19 Vaccine (4 - 2024-2 6 season) 2024 03/05/2021, 07/03/2020, 05/22/2020 Influenza Vaccine (#1) 2024 03/04/2016 Abdominal Aortic Aneurysm (AAA) Screen 12/17/2024 Cholesterol Screening (Lipid Panel) 12/17/2024 Falls Risk Assessment 12/17/2024 Hepatitis C [...] 12:50 PM EDT Malignant neoplasm of prostate ([facility] V24, [facility] V28) Hormone sensitive malignancy status from Last [...] Signed Date: 12/19/2024 14:29 ET Workstation ID: [id number] Transcribed By: Self Edit Transcribed Date: 12/19/2024 [...] not designed to produce and cannot replace zkxwt-hq-bvu-art true diagnostic CT examination with specific protocols. [...] reconstructed in axial, coronal, sagittal planes at thePagidoputer workstation with fused data from both the PET imaging study andattenuation correction CT study. Please note, CT imaging utilized strictlyfor attenuation correction and anatomic localization: CT not designed toproduce and cannot replace ypbmv-ys-tlr-art true diagnostic CT examinationwith specific protocols. Standardized [...] Signed Date: 12/19/2024 14:29 ET Workstation ID: [id number] Transcribed By: Self Edit Transcribed Date: 12/19/2024 14:28 ET Ishan Sharma MD IMG NM PROCEDURES Final Resul t from Last 3 [place] [id number]
--- NOTE | 2025-01-08 08:39 | AM.OFFVISNUR ---
Intake Visit Reasons: GnRH Allergies No Known Allergies Allergy (Verified 12/25/24 09:36) Office Meds Eligard (6 month) 45 mg (6 month) subcutaneous syringe Performing Provider: Ishan Sharma MD [facility] Administered by: Arjun Quinn LPN on 01/08/25 08:39 Dose Route Admin Location Dispensed Lot Number Expiration Date [facility] Nut Roaster Helper 45 mg subcut left arm 45 mg [id number] 02/02/26 52550-780-66 [employer]. Total Dispensed Waste 45 mg 0 % Assessment & Plan Assessment & Plan Orders: Orders AMB Leuprolide Injection - Practice Supplied Today C61 - Malignant neoplasm of prostate, Z19.1 - Hormone sensitive malignancy status Coding
== END 2025-01-08 08:59 | disposition home or self-care (01) ==
LOC: HO.HUSH 08:15
PROVIDERS: Visit Provider Urology
DX: C61 Malignant neoplasm of prostate (principal); Z19.1 Hormone sensitive malignancy status

== ENCOUNTER → 2025-01-08 08:15 | Outpatient (BNVA) | payer MEDICARE, OTHER, SELFPAY | PROVIDERS: Visit Provider Urology | DX: Z51.11 Encounter for antineoplastic chemotherapy (principal); C61 Malignant neoplasm of prostate; Z19.1 Hormone sensitive malignancy status | CPT/HCPCS: 96402; J9217 ==

== ENCOUNTER 2025-02-25 05:51 | Day surgery (SDC) | payer MEDICARE, OTHER, SELFPAY ==
--- OUTSIDE RECORDS SUMMARY | 2025-02-08 13:52 | XMS_ITS | Clinical Summary ---
Author Organization [facility] Address [address] [place] [address] Phone Care Team Providers Care Rip Sawyer Name Role Phone Unavailable Primary Care Provider Unavailabl e Encounters Date Type Department Care Team Description 12/18/2024 11:10 AM EDT - 12/18/2024 11:59 PM EDT Hospital Encounter [facility] PET Scan [address] [place] [address] Malignant neoplasm of prostate (CMS/HCC [...] 12:50 PM EDT Malignant neoplasm of prostate ([facility]/HCC V24, CMS/HCC V28) Hormone sensitive malignancy status [...] Signed Date: 12/19/2024 14:29 ET Workstation ID: [id number] Transcribed By: Self Edit Transcribed Date: 12/19/2024 [...] not designed to produce and cannot replace bakkr-ot-xtt-art true diagnostic CT examination with specific protocols. [...] reconstructed in axial, coronal, sagittal planes at theNvigenputer workstation with fused data from both the PET imaging study andattenuation correction CT study. Please note, CT imaging utilized strictlyfor attenuation correction and anatomic localization: CT not designed toproduce and cannot replace cmjep-sw-jsr-art true diagnostic CT examinationwith specific protocols. Standardized [...] Signed Date: 12/19/2024 14:29 ET Workstation ID: [id number] Transcribed By: Self Edit Transcribed Date: 12/19/2024 14:28 ET Ishan Sharma MD IMG NM PROCEDURES Final Resul t from Last 3 Months Insurance MEDICARE
--- OUTSIDE RECORDS SUMMARY | 2025-02-08 13:52 | XMS_ITS | Patient Health Record ---
Author Organization [facility] Address [address] [place] [address] Care Team Providers Care Pen Tender Name Role Phone Flores (RETIRED) Dhruv MICHELE Primary Care Provide r Unavailable Jack López Unavailable [phone] Reason For Referral No Information Medications Medication [...] Problem Status W/U Status Risk Notes Problem Screening for malignant neoplasm of colon (972072853) Encounter for screening for malignant neoplasm of colon (Z12.11) Active confirmed Problem Preprocedural examination ([id number]) Preprocedural examination (Z01.818) Active confirmed Plan Of Treatment Future Test Test Name Order Date COLONOSCOPY 09/09/2016 Insurance Providers Payer Name Payer Address Payer Phone Subscriber Number Group Number Insured Name Patient Relationship to Insured Coverage Start Date Coverage End Date [employer] [address] [place] [address] [phone] [id number] ED RIVERA Self - patient is the insured Medical (General) History Medical History History ICD Code Denies HI,DM,CVA,Lung disease,renal dise ase BPH Reports a neg. colonoscopy at approx. ag e 50 in [place] Surgical History Surgery Date(Month/Year) Tonsillectomy 1961
--- NOTE | 2025-02-20 10:30 | HO.ANESPROP2 ---
Documented by User: Melanie Smith NP 02/20/25 10:30 HPI - Anesthesia Eval Consult details Narrative: 69yo M for Space OAR with marker placement PMFSH Active Problems Active Problems: All Active Problems Hormone sensitive prostate cancer (Acute) Prostate nodule (Acute) Elevated PSA (Acute) Past Medical History Medical History Hormone sensitive prostate cancer Surgical History Surgical History H/O colonoscopy Hx of tonsillectomy Hx of prostate biopsy Social History Social History Are you a primary dialysis patient care technician to a significant other at home: No Do you presently have visiting nurse or other home services: No Patient Tobacco Use Status: Never used Tobacco Use of substances other than those prescribed or required for medical reasons: No Have you been hit, kicked, punched, or otherwise hurt by someone within the past year? If so, by whom?: No Spiritual Healthcare Practices: no [facility] Practices: no Cultural Healthcare Practices: no Are you DNR?: No Advance Directives: No Advance Directives Information Provided: Yes Advance Directives on File: No Meds Allergies Allergy/AdvReac Type Severity Reaction Status Date / Time No Known Allergies Allergy Verified 02/25/25 06:06 Home Medications ?Medication ?Instructions ?Recorded ?Confirmed ?Last Taken ?Type tamsulosin 0.4 mg capsule 0.4 mg PO BEDTIME 05/30/24 02/25/25 Unknown History finasteride 5 mg tablet 5 mg PO BEDTIME 02/21/25 02/25/25 Unknown History Assessment and Plan Assessment Anesthesia Assessment: Chart Reviewed Documented by User: Reese Davidson MD 02/25/25 06:42 PMFSH Past Medical History Medical History Hormone sensitive prostate cancer Family History Family history of problems with anesthesia: No Surgical History Surgical History H/O colonoscopy Hx of tonsillectomy Hx of prostate biopsy History of Problems with Anesthesia: No Social History Social History Are you a primary dialysis patient care technician to a significant other at home: No Do you presently have visiting nurse or other home services: No Patient Tobacco Use Status: Never used Tobacco Use of substances other than those prescribed or required for medical reasons: No Have you been hit, kicked, punched, or otherwise hurt by someone within the past year? If so, by whom?: No Spiritual Healthcare Practices: no [facility] Practices: no Cultural Healthcare Practices: no Are you DNR?: No Advance Directives: No Advance Directives Information Provided: Yes Advance Directives on File: No Meds Allergies Allergy/AdvReac Type Severity Reaction Status Date / Time No Known Allergies Allergy Verified 02/25/25 06:06 Home Medications ?Medication ?Instructions ?Recorded ?Confirmed ?Last Taken ?Type tamsulosin 0.4 mg capsule 0.4 mg PO BEDTIME 05/30/24 02/25/25 Unknown History finasteride 5 mg tablet 5 mg PO BEDTIME 02/21/25 02/25/25 Unknown History Exam Airway Mallampati Class: III TM Dist: <=3cm Neck ROM: Full Loose/Missing/Broken Teeth: No Heart: RRR Lungs: CTA Assessment and Plan Assessment Anesthesia Assessment: Anesthesia Plan Discussed Final Anesthetic Review Family History of Problems with Anesthesia: No History of Problems with Anesthesia: No NPO: Yes ASA Class: II Final Preanesthetic Review: No Changes in Pt Med Stat, Meds/Allgs Chart Reviewed, Consent Obtained/Reviewed and Anes Risks/Benef Reviewed Patient Risk: Low Procedure Risk: Low Anesthetic Plan Anesthetic Plan: GA
[2025-02-21 12:46] VITALS: BMI 31.8
[2025-02-25 06:18] VITALS: BP 161/90; PULSE 61; RESP 15; TEMP 36.3; O2SAT 93
[2025-02-25] MEDS: Lactated Ringers 1,000 ML 100 ML IVCONT (06:30)
--- NOTE | 2025-02-25 07:31 | MHC.SHP ---
Pre-Procedural Eval Section A - 24 Hr Update-Section A only Date of Service: 02/25/25 The patient is an INPATIENT: No Changes since office visit: No Cold of Flu in the past 2 weeks, No New Medical Problems, No Changes in Medication and No Patient answered all questions The patient has been examined within 24 hours of the surgical procedure. The History & Physical has been completed within 30 days and I have reviewed it.: No Section B - Complete if H&P > 30 days Chief Complaint: Malignant neoplasm of prostate Details of Present Illness: plan space oar and marker placement for prostate cancer Relevant Social History: None Present Medications: see Short Stay Collaborative assessment Medical History: No relevant PMH History of Previous Operations: No relevant previous surgery Allergies: Allergies Allergy/AdvReac Type Severity Reaction Status Date / Time No Known Allergies Allergy Verified 02/25/25 06:06 Review of Systems Sugical H&P ROS: Negative: Constitution, Cardiovascular, Respiratory, Neurological, Psychiatric, Hem-Onc, Allergic/Immunologic, Gastrointestinal, Genitourinary, Musculoskeletal, Integumentary, Endocrine and Eyes/Ears/Nose/Throat Exam Surgical H&P Exam: Normal: HEENT, Normal: Heart, Normal: Lungs, Normal: Extremities, Normal: Abdomen, Normal: Skin and Normal: Neurological Plan Diagnosis/Plan: Unchanged I have reviewed the history and physical and performed a pertinent physical examination on my patient. No changes have occurred unless specified. Time Spent With Patient Time: Total time managing care of this patient today ____ minutes.
[2025-02-25 08:18] VITALS: BP 153/85; PULSE 59; RESP 20; TEMP 36.1; O2SAT 96
--- NOTE | 2025-02-25 08:20 | P.OP_ITS ---
Operative Note Operative Note Date of Service: 02/25/25 Narrative: Preoperative diagnosis: Prostate cancer Postoperative diagnosis: Prostate cancer Procedure: 1. Transrectal ultrasound-guided perineal visicoil marker seed placement 2. Transrectal ultrasound-guided perineal SpaceOAR gel placement Surgeon: Dr. Ishan Sharma Anesthetic: Sedation Indications for procedure: Prostate Cancer - Organ confined unfavorable intermediate volume grade group 3 disease Procedure: After informed consent was verified, the patient was brought into the operating room and anesthesia was performed per protocol. The patient was placed in a modified dorsal lithotomy position. Anus was dilated with a finger. Gel was placed per rectum. Ultrasound probe was placed per rectum. The prostate was visualized in sagittal and transverse dimensions. Local anesthetic was infiltrated in the perineal area using 10 cc of lidocaine Visicoil seed markers were placed in a transperineal fashion using ultrasound guidance 1 on the right toward mid gland. 1 on the left at mid gland. Good deployment confirmed with ultrasound. The purpose is for target triangulation. The 2nd part of the procedure was placement of SpaceOAR gel to allow consolidation for radiation delivery. The kit was prepared on the backtable with assembly of the 2 part solution and syringe delivery system per kit instructions. The delivery needle was advanced bevel down in the midline under ultrasound guidance to the apex of the prostate. It was advanced in the plane the prostate from the rectum to the midpoint of the prostate. Location was reviewed using sagittal and transverse imaging. At the midpoint of the prostate 1 cc of saline was placed to confirm needle position. Further injection of saline was placed to confirm spread toward the base of the prostate. Position was confirmed with sagittal and transverse imaging. The needle was c onfirmed to be free from tenting of the rectum. With the needle in the confirmed position 10 cc of gel mixture was injected. This was performed over a target time of 15-20 seconds to allow for adequate spread. Good separation was seen of the rectum from the prostate space running in the midline from the base toward the apex of the prostate. Following completion of the procedure the probe was removed from the rectum. He tolerated the procedure well. He was extubated in the operating room and transferred in stable condition to the recovery area. Pathology none Drains none
[2025-02-25 08:23] VITALS: BP 134/76; PULSE 60; RESP 12; O2SAT 94
[2025-02-25 08:28] VITALS: BP 130/92; PULSE 77; RESP 16; O2SAT 93
[2025-02-25 08:33] VITALS: BP 136/80; PULSE 66; RESP 14; O2SAT 95
[2025-02-25 08:41] VITALS: BP 144/81; PULSE 65; RESP 14; TEMP 36.6; O2SAT 92
== END 2025-02-25 09:36 | disposition home or self-care (01) ==
PROVIDERS: Visit Provider Urology
PROC: (CPT 55876; principal; 2025-02-25 07:30)
DX: C61 Malignant neoplasm of prostate (principal); Z19.1 Hormone sensitive malignancy status; Z79.899 Other long term (current) drug therapy
CPT/HCPCS: 55876; 55874; A4648; C1889; J1100; J2003; J2704; J3010

== ENCOUNTER → 2025-02-25 05:51 | Outpatient (BNV) | payer MEDICARE, OTHER, SELFPAY | PROVIDERS: Visit Provider Urology | DX: C61 Malignant neoplasm of prostate (principal) | CPT/HCPCS: 55874; 55876; 76942 ==